=== PATIENT | female | born 1990 | race Caucasian/White ===

== ENCOUNTER → 2020-02-11 08:48 | Outpatient (CLI) | payer MEDICAID, SELFPAY ==
[2020-02-11 09:10] LABS: Absolute Lymphocyte Count 2.19 X10^3/uL (0.83-4.51); Absolute Neutrophil Count 4.7 X10^3/uL (2.0-7.7); Basophil# 0.05 X10^3/uL; Basophil% 0.6 % (0-1); Eosinophil# 0.33 X10^3/uL; Eosinophils% 4.2 % (0-5); Hemoglobin 13.9 g/dL (12.0-15.0); Lymphocyte # 2.19 X10^3/ul (4.0); Mean Corp Hgb Conc 33.1 g/dL (32-36); Mean Corpuscular Hgb 30.2 pg (27.0-32.0); Mean Corpuscular Volume 91.3 fL (81-99); Mean Platelet Vol. 9.2 fl (6.2-12.0); Monocyte# 0.55 X10^3/uL; NRBC Flagged by Analyzer 0 % (0-5); Neutrophil # 4.67 X10^3/uL (2.7-7.7); Neutrophil % 59.8 % (47-70); Platelet Count 294 K/mm3 (150-450); RBC Distribution Width CV 12.3 % (11.6-14.6); White Blood Count 7.8 K/mm3 (4.4-11.0)
[2020-02-11 09:45] LABS: ALB/GLOB Ratio 1.2 RATIO (0.9-2.4); AST(SGOT) 8 U/L (15-37); Alanine Aminotransfer ALT/SGPT 17 U/L (13-56); Albumin, Serum 3.8 g/dL (3.2-5.0); Alkaline Phosphatase 96 U/L (45-117); Anion Gap 2 (5-15); BUN 12 mg/dL (7-18); BUN/Creat Ratio 18.8 RATIO (10-20); Calcium,Total 8.8 mg/dL (8.5-10.1); Chloride 110 mmol/L (98-107); Cholesterol 202 mg/dL (200); Creatinine, Serum 0.64 mg/dL (0.55-1.02); EST Glomerular Filtration Rate 118 mL/min (>60); Est Glom Filt Rate - Afr Amer 143 mL/min (>60); Globulin 3.2 g/dL (2.2-4.2); Glucose 82 mg/dL (74-106); High Density Lipoprotein 27 mg/dL; Sodium Level 139 mmol/L (136-145); T4 Free Direct 0.94 ng/dL (0.76-1.46); Thyroid Stim Hormone (TSH) 0.89 uIU/mL (0.358-3.74); Triglycerides 154 mg/dL; Very Low Density Lipoprotein 31 mg/dL (5-40)
[2020-02-11 09:46] LABS: Hemoglobin A1c 4.8 % (3.8-5.6)
[2020-02-13 09:19] LABS: HIV - WCH Non-Reactive (Nonreactive); Hepatitis C Antibody Non-Reactive (Nonreactive); Vitamin D,25 Hydroxy 30.6 ng/mL
[2020-02-16 05:27] LABS: Rapid Plasmin Reagin (RPR) NONREACTIVE (NONREACTIVE)
== END ==
DX: R10.84 Generalized abdominal pain (principal); R35.8 Other polyuria; M54.5 Low back pain; Z20.9 Contact with and (suspected) exposure to unspecified communicable disease
CPT/HCPCS: 36415; 80053; 80061; 82306; 83036; 84439; 84443; 85025; 86592; 86703; 86803

== ENCOUNTER → 2020-02-28 08:18 | Outpatient (CLI) | payer MEDICAID, SELFPAY ==
[2016-03-12 01:23] VITALS: BMI 26.6
--- NOTE | 2020-02-28 08:23 | CT_ITS ---
STUDY: CT ABDOMEN AND PELVIS WITHOUT CONTRAST REASON FOR EXAM: Female, 29 years old. PT STATED PELVIC PRESSURE WITH URINATION, MICRO HEMATURIA, HX APPY AND CHRISTINE RADIATION DOSAGE (If Supplied By Facility): CTDIvol = ( 6.55 ) mGy, DLP = ( 340.28 ) mGycm TECHNIQUE: Transaxial images were obtained from the dome of the diaphragm to the symphysis pubis without oral contrast, and without intravenous contrast. Sagittal and coronal images were reconstructed. Individualized dose optimization techniques were used for this CT. COMPARISON: Comparison is made with prior examination dated 01/26/2012. FINDINGS: The visualized lung bases are unremarkable. The visualized portions of the heart are within normal limits. Normal liver. There are surgical clips in the gallbladder fossa consistent with a prior cholecystectomy. Normal spleen. Normal pancreas. Normal bilateral adrenal glands. Normal right kidney. Normal left kidney. Normal visualized stomach. Normal small intestine. Normal colon. There are surgical clips in the region of the appendix consistent with a prior appendectomy. Normal abdominal aorta. Normal inferior vena cava. Normal retroperitoneum. Normal urinary bladder. There is a 2.9 cm x 2.7 cm right ovarian cyst. Normal abdominal wall. Normal osseous structures. CT/Abdomen/Pelvis without Cont IMPRESSION: 2.9 cm x 2.7 cm right ovarian cyst. Electronically Signed: Simon Tavera, at 10:04 EDT , Service support ,
== END ==
PROVIDERS: Referring Provider Nurse Practitioner Family; Visit Provider Nurse Practitioner Family
DX: R10.84 Generalized abdominal pain (principal)
CPT/HCPCS: 74176

== ENCOUNTER 2020-03-09 17:11 | Emergency (ER) | payer MEDICAID, SELFPAY ==
[2020-03-09 17:12] VITALS: BP 114/74; PULSE 65; RESP 18; TEMP 36.3; O2SAT 99; BMI 26.5
--- NOTE | 2020-03-09 18:00 | US_ITS ---
STUDY: ULTRASOUND TRANSVAGINAL CLINICAL: Female, 29 years old. RLQ PAIN TECHNIQUE: Transvaginal COMPARISON: CT of the abdomen and pelvis 02/28/2020 FINDINGS: Normal uterine size measuring 7.9 x 3.7 x 3.1 cm in maximal craniocaudal dimension. There are no myometrial masses. Normal endometrial thickness measuring 1.5 mm. There are no endometrial masses, and there is no fluid in the endometrial cavity. Normal uterine cervix. Normal right ovary, measuring 3.3 x 3.6 x 3.2 cm. There is a 2.9 x 3.6 x 2 cm cyst. Normal left ovary, measuring 2.7 x 1.5 x 1.7 cm. There are multiple follicles without a dominant cyst. There is no free fluid in the pelvis. US/Transvaginal Non- IMPRESSION: Small right ovarian cyst measuring 2.9 x 3.6 x 2 cm likely physiologic in patient of this age. No significant abnormality Electronically Signed: Jose Coelho MD at 21:24 EDT , Service support ,
[2020-03-09 18:20] LABS: Bacteria 0 SEEN /hpf (None Seen); Mucous, Urine 0 SEEN /hpf (<or=2+)
[2020-03-09] MEDS: Morphine 4 MG/ML Syringe IM (18:22)
[2020-03-09] MEDS: Ibuprofen 600 MG Tablet PO (18:22)
[2020-03-09 18:25] LABS: Color, Urine Yellow (Yellow); Glucose, Dipstick Normal (Normal); Ketone-Dipstick Negative (Negative); Leukocyte Esterase-Dipstick 100 /ul (Negative); Nitrite-Dipstick Negative (Negative); Occult Blood-Urine 50 /ul (Negative); Protein-Dipstick Negative (Negative); Urine Bilirubin Dipstick Negative (Negative); Urine Clarity Clear (Clear); Urine Urobilinogen Normal (Normal)
[2020-03-09 18:28] LABS: Internal QC Validated? YES +Cl - CLEAR BKGD; Pregnancy, Urine Negative Negative
[2020-03-09 18:43] LABS: Red Blood Cells-Urine 0-5 SEEN /hpf (0-5); Squamous Epithelial Cells - UA 5-10 SEEN /hpf (5-10); White Blood Cells 0-5 SEEN /hpf (0-5)
[2020-03-09 21:58] VITALS: RESP 18
--- NOTE | 2020-03-09 22:27 | ED.VIS.GEN ---
History of Present Illness Chief Complaint: Abd Pain Informant: Patient Onset: Today Context: Gradual Onset Timing: Continuous Narrative: Patient is a 29-year-old female presenting from home with right pelvic pain. Patient states she was recently told she has a cyst on her right side is worried that it might be rupturing. She states she started having mild pain this morning that seem to be worse when she was straining to have a bowel movement. The pain is increase throughout the day. She is also notes today she has had bloody/more mucus-like discharge. Her last menstrual period was about a month ago but she is not concerned for as she has a Nexplanon. Patient has any associated dysuria, vomiting or diarrhea. She does have associated nausea and headache associate with her pain. The pain does not radiate. Patient states she is only had one partner and was just seen by her CARD SERVICES SPECIALIST and is not concerned for sexually transmitted factions. She states she just had a Pap smear last week. States he has not been sexually active for the past 2 to 3 weeks. She has no other complaints at this time. Past Medical History - Allergies and Home Meds Allergies/Adverse Reactions: Allergies TB SHOT Adverse Reaction (Uncoded 06/12/13 07:16) Swelling HAD A BABY; HAS SACR FROM SHOT; HAS NOT HAD SINCE Primary Care Physician: Carolann hCo DO [STAFF PHYSICIAN] - [facility],Erica Richardson [Primary Care Provider] - Past Medical History: None Surgical History: appendectomy, cholecystectomy Lives: With Family Smoking Status: Current every day smoker Review of Systems General: Denies: Chills, Fever, Sweats Eyes: Denies: Visual changes - bilaterally, Diplopia ENT: Denies: Rhinorrhea, Sore throat Cardiovascular: Denies: Chest pain, Palpitations Respiratory: Denies: Dyspnea, Cough, Dyspnea on exertion Gastrointestinal: Reports: Abdominal pain, Nausea. Denies: Vomiting, Diarrhea, Melena, Hematochezia Genitourinary: Reports: - - abnormal vaginal discharge . Denies: Dysuria, Hematuria, Frequency Musculoskeletal: Denies: Back pain, Extremity Pain Skin: Denies: Rash, Wounds Neurological: Denies: Headache, Weakness, Numbness Physical Exam Vital Signs/Narrative: Vital Signs Resp 03/09/20 21:58 18 Inital Vital Signs reviewed: Yes General: Well nourished, Well developed, No Acute Distress Head: Normocephalic, Atraumatic Eyes: Perrl, EOMI ENT: Moist mucous membranes, No rhinorrhea Neck: Supple, Nontender Cardiovascular: Regular rate, Regular rhythm, No murmurs Respiratory: No distress, CTA bilaterally, Chest nontender Abdomen: Soft, Nontender, Nondistended, Normal bowel sounds. Negative for: Guarding, Rebound tenderness : - - No external discharge. Slightly mucoid vaginal discharge present. No cervical motion tenderness. Mild right adnexal tenderness. Normal left adnexa. Back: Nontender, Normal Inspection. Negative for: CVA tenderness Extremities: Nontender, No edema Skin: Normal color, No rash Neurological: Alert, Oriented x3, Cranial nerves II-XII grossly intact, Normal Strength, Normal Sensation Psychological: Normal affect, Normal Mood Diagnostic/Tx/Re-eval Clinical Impression(s) from Imaging Studies Transvaginal US 03/09/20 18:00 IMPRESSION: Small right ovarian cyst measuring 2.9 x 3.6 x 2 cm likely physiologic in patient of this age. No significant abnormality Electronically Signed: Jose Coelho MD at 21:24 EDT , Service support , Laboratory Data 03/09/20 03/09/20 03/09/20 18:10 18:10 18:10 Urine Color Yellow Urine Clarity Clear Urine pH 7.0 Ur Specific [place] 1.010 Urine Protein Negative Urine Glucose (UA) Normal Urine Ketones Negative Urine Occult Blood 50 H Urine Nitrite Negative Urine Bilirubin Negative Urine Urobilinogen Normal Ur Leukocyte Esterase 100 H Urine RBC 0-5 SEEN Urine WBC 0-5 SEEN Ur Squamous Epith Cells 5-10 SEEN Urine Bacteria 0 SEEN Urine Mucus 0 SEEN Urine Test Negative Chlam trachomat DNA PCR Negative N.gonorrhoeae DNA (PCR) Negative - Medical Decision Making Patient is evaluated for worsening pain in her right pelvic region. She is concerned she has a ruptured ovarian cyst. She is well-appearing but is given a dose of IM morphine for pain control. She is also given Motrin and Tylenol. Patient appears nontoxic and in no acute distress however she is mildly uncomfortable. Pelvic exam is not consistent with pelvic inflammatory disease or other acute infectious process. Denies any CVA tenderness. Patient does have some leukocytes in her urine. The pain is low in her abdomen I do not suspect GI source. In addition patient status post appendectomy so do not think she will be appendicitis. Transvaginal ultrasound obtained to rule out ruptured ovarian cyst versus ovarian torsion. No acute process is seen. Patient does have a physiologic cyst there however think is more incidental. Patient be discharged home with antibiotics she does have a questionable UTI. Gonorrhea and Chlamydia are negative. She is instructed to follow-up with CARD SERVICES SPECIALIST and is referred to Dr. Cho. She is given return precautions. Patient verbalizes agreement understand this plan. She discharged home in stable condition. ED Disposition - Plan for ED Patient: Disposition: Home or Assisted Living Diagnosis: Pelvic pain, Right ovarian cyst Instructions: ED Cyst Ovarian, ED Pelvic Pain [facility] Prescriptions: Cephalexin [Keflex] 500 mg PO BID #10 cap Prescription Printed Ibuprofen [Motrin] 600 mg PO Q6H PRN PRN #20 tab PRN Reason: Pain Score 1-10/10 Prescription Printed Ondansetron [Zofran Odt] 4 mg PO Q8H PRN PRN #10 tab PRN Reason: Nausea Prescription Printed [facility] - Carolann Cho DO [STAFF PHYSICIAN] - Additional Instructions: Your pain might be from an ovarian cyst. I will treat you for urinary tract infection as well as she did have some signs of inflammation in your bladder. Take Motrin as needed for pain. Return the emergency room with any worsening symptoms. You have Been referred to an CARD SERVICES SPECIALIST, Dr. Cho to follow-up if your pain persist or does not improve.
[2020-03-09] MEDS: Acetaminophen 500 MG Tablet 1000 MG PO (22:54)
[2020-03-09 22:55] VITALS: BP 127/69; PULSE 75; RESP 16; O2SAT 99
[2020-03-10 00:41] LABS: Chlamydia Trachomatis by PCR Negative (Negative); Neisserai gonorrhoeae by PCR Negative (Negative)
[2020-03-10 00:42] LABS: Probe Check PASS; Sample Adequacy Control PASS; Specimen Processing Control PASS
== END 2020-03-09 22:56 | disposition home or self-care (01) ==
PROVIDERS: Emergency Provider Emergency Medicine
DX: R10.2 Pelvic and perineal pain (principal); N83.201 Unspecified ovarian cyst, right side; N30.90 Cystitis, unspecified without hematuria; F17.200 Nicotine dependence, unspecified, uncomplicated; Z90.49 Acquired absence of other specified parts of digestive tract
CPT/HCPCS: 76830; 81001; 81025; 87210; 87491; 87591; 96372; 99283

== ENCOUNTER 2022-03-22 20:54 | Emergency (ER) | payer MEDICAID, SELFPAY ==
[2022-03-22 20:56] VITALS: BP 135/74; PULSE 70; RESP 18; TEMP 36.3; O2SAT 99; BMI 26.4
[2022-03-22 21:58] VITALS: BP 109/59; PULSE 85; RESP 16; TEMP 37.2; O2SAT 100
--- NOTE | 2022-03-22 22:08 | RAD_ITS ---
STUDY: X-RAY CHEST REASON FOR EXAM: Female, 31 years old. Cough TECHNIQUE: Portable, upright, AP chest radiograph COMPARISON: None. FINDINGS: The lungs are clear and expanded. There is no demonstrated pleural abnormality. Normal size heart. Normal mediastinum and elvira. Normal visualized pulmonary arteries. Normal visualized aortic arch and descending thoracic aorta. Cholecystectomy clips noted. RAD/Chest 1 View (Portable) IMPRESSION: No acute abnormal cardiopulmonary finding. Electronically Signed: Tyler Benoit MD at 22:33 EDT ,
--- NOTE | 2022-03-22 22:10 | EX.ED.DYSGE1 ---
HPI History of Present Illness Chief Complaint: General Illness Informant: patient Onset/Context/Timing Onset: Today Narrative Narrative: Patient presents secondary to body aches and headache. She states she woke this morning with symptoms. She reports a fever of 99.8. She took ibuprofen 11 hours ago. She denies nausea, vomiting, diarrhea. No urinary symptoms. She does report a mild cough. She did not get vaccinated for COVID. [facility] Medical History PTSD (post-traumatic stress disorder) Allergy/AdvReac Type Severity Reaction Status Date / Time TB SHOT AdvReac Swelling Uncoded 03/22/22 20:55 Surgical History History of appendectomy History of cholecystectomy Social History Smoking Status: Current every day smoker tobacco type: cigarettes Tobacco: How many years used: 8 ROS ROS ED Constitutional Constitutional ED: Reports chills and fever(s) Eyes Eyes: Denies change in vision or discharge from eye(s) ENT ENT ED: Reports other Details: Congestion ; Denies discharge from eye(s), rhinorrhea or sore throat Cardiovascular Cardiovascular: Denies chest pain or palpitations Respiratory/Chest Respiratory/Chest: Reports cough; Denies dyspnea Gastrointestinal Gastrointestinal: Denies abdominal pain, diarrhea, nausea or vomiting Genitourinary Genitourinary ED: Denies difficulty urinating or dysuria Musculoskeletal Musculoskeletal: Reports back pain, extremity pain and myalgias Integumentary Denies Abrasions or rash Neurologic Neurologic: Reports headache(s); Denies weakness Psychiatric Psychiatric: Denies anxiety or depression Allergic/Immunologic Allergic/Immunologic ED: Denies lip swelling or urticaria EXAM Physical Exam Const Vital Signs: 03/22/22 20:56 03/22/22 21:03 03/22/22 21:58 Temperature 97.4 F L 99 F Temperature Source Temporal Oral Pulse Rate 70 85 Respiratory Rate 18 16 Respiratory Effort Normal Non-Labored Respiratory Pattern Normal Blood Pressure 135/74 H 109/59 L Blood Pressure Mean 94 75 Pulse Ox 99 100 Oxygen Delivery Method Room Air Room Air 03/22/22 22:52 Temperature Temperature Source Pulse Rate 53 L Respiratory Rate 16 Respiratory Effort Respiratory Pattern Blood Pressure 116/70 Blood Pressure Mean 85 Pulse Ox 98 Oxygen Delivery Method Room Air Positive well nourished and well developed General Appearance ED: well developed HEENT Reports normocephalic and head/scalp atraumatic Eyes PERRL and EOMs intact bilaterally Neck supple Chest Wall inspection of chest normal and palpation of chest normal Resp normal respiratory effort and clear to auscultation bilaterally Cardio regular rate and regular rhythm GI normal to inspection, nondistended, normoactive bowel sounds Palpation: soft Extremity normal to inspection Neuro oriented x3 and no sensory deficits noted Sensorium / Orientation: alert Motor Exam: strength 5/5 throughout Psych mental status grossly normal Skin no rashes or lesions noted MDM MDM MDM Narrative Medical decision making narrative: Chest x-ray ordered along with lab work. COVID and influenza swab obtained. Patient given IV fluids along with Toradol and Zofran. Lab Data Attestation: I reviewed the patient's lab results. Labs: Laboratory Results - last 24 hr 03/22/22 03/22/22 03/22/22 22:29 22:29 22:29 WBC 5.7 RBC 3.93 L Hgb 11.7 L Hct 35.5 L MCV 90.3 MCH 29.8 MCHC 33.0 RDW Std Deviation 40.8 RDW Coeff of Fox 12.2 Plt Count 240 MPV 9.8 Immature Gran % (Auto) 0.300 Neut % (Auto) 77.2 H Lymph % (Auto) 8.9 L [place] % (Auto) 10.5 H Eos % (Auto) 2.8 Baso % (Auto) 0.3 Absolute Neuts (auto) 4.4 Absolute Lymphs (auto) 0.51 L Nucleated RBC % 0 Differential Comment SEE COMMENT Platelet Estimate ADEQUATE RBC Morphology N CHROM Anisocytosis RARE Macrocytosis RARE Sodium 140 Potassium 3.8 Chloride 109 H Carbon Dioxide 23.0 Anion Gap 8 BUN 12 Creatinine 0.64 Estim Creat Clear Calc 97.87 Est GFR (MDRD) Af Amer 141 Est GFR (MDRD) Non-Af 116 BUN/Creatinine Ratio 18.8 Glucose 97 Calcium 9.3 Serum , Qual NEGATIVE Radiography Chest X-Ray - ED: 1 View, Read by ED Physician, Normal, Heart, Lungs, Mediastinum and No Infiltrates Diagnostic Testing: Clinical Impression(s) from Imaging Studies Chest X-Ray 03/22/22 22:08 IMPRESSION: No acute abnormal cardiopulmonary finding. Electronically Signed: Tyler Benoit MD at 22:33 EDT , Treatment and Re-Evaluation Narrative: Chest x-ray per my interpretation reveals no focal infiltrate. Radiology interpretation is reviewed. CBC reveals normal white count. Chemistry studies largely unremarkable. test negative. Influenza test is negative but COVID test does return positive. Test results discussed with patient and at bedside. Supportive care is discussed. Return instructions provided. Discharge Plan Triage Chief Complaint: General Illness ED Provider: Michelle Nava Dx/Rx/DC Orders Clinical Impression: COVID-19 Instructions: Coronavirus Disease 2019 (COVID-19): Overview, Coronavirus Disease 2019 (COVID-19): Caring for Yourself or Others Stand Alone Forms: ED Work / School Excuse Primary Care Provider: Erica Peña Referrals: Erica Peña [Primary Care Provider] - 1-2 Weeks Disposition Disposition: Home, Self Care
[2022-03-22 22:37] LABS: Absolute Lymphocyte Count 0.51 X10^3/uL (0.83-4.51); Absolute Neutrophil Count 4.4 X10^3/uL (2.0-7.7); Basophil# 0.02 X10^3/uL; Basophil% 0.3 % (0-1); Eosinophil# 0.16 X10^3/uL; Eosinophils% 2.8 % (0-5); Hematocrit 35.5 % (37-47); Hemoglobin 11.7 g/dL (12.0-15.0); Lymphocyte # 0.51 X10^3/ul (0.83-4.51); Lymphocyte % 8.9 % (19-41); Mean Corpuscular Hgb 29.8 pg (27.0-32.0); Mean Corpuscular Volume 90.3 fL (81-99); Mean Platelet Vol. 9.8 fl (6.2-12.0); Monocyte% 10.5 % (0-10); NRBC Flagged by Analyzer 0 % (0-5); Neutrophil # 4.42 X10^3/uL (2.7-7.7); Neutrophil % 77.2 % (47-70); POSITIVE DIFFERENTIAL YES; Platelet Count 240 K/mm3 (150-450); RBC Distribution Width CV 12.2 % (11.6-14.6); RBC Distribution Width SD 40.8 fl (35.1-43.9); Red Blood Count 3.93 M/mm3 (4.2-5.4); White Blood Count 5.7 K/mm3 (4.4-11.0)
[2022-03-22 22:39] LABS: Differential Indicated SCAN CRITERIA MET
[2022-03-22] MEDS: 0.9% Normal Saline 1,000 ML 1000 ML IV (22:39)
[2022-03-22] MEDS: Ondansetron 4 MG/2 ML Vial IV (22:39)
[2022-03-22] MEDS: Ketorolac 30 MG/ML Syringe IV (22:43)
[2022-03-22 22:49] LABS: Internal QC Validated? YES +Cl - CLEAR BKGD; Pregnancy, Serum, hCG Quali. NEGATIVE Negative
[2022-03-22 22:51] LABS: Anion Gap 8 (5-15); BUN 12 mg/dL (7-18); BUN/Creat Ratio 18.8 RATIO (10-20); Calcium,Total 9.3 mg/dL (8.5-10.1); Chloride 109 mmol/L (98-107); Creatinine, Serum 0.64 mg/dL (0.55-1.02); EST Glomerular Filtration Rate 116 mL/min (>60); Est Glom Filt Rate - Afr Amer 141 mL/min (>60); Estimated Creatinine Clearance 97.87 ml/min; Glucose 97 mg/dL (74-106); Potassium 3.8 mmol/L (3.5-5.1); Sodium Level 140 mmol/L (136-145)
[2022-03-22 22:52] VITALS: BP 116/70; PULSE 53; RESP 16; O2SAT 98
[2022-03-22 23:21] LABS: Anisocytosis RARE; Platelet Estimate ADEQUATE (ADEQ); Red Cell Morphology N CHROM NORMAL (NORM C&C)
[2022-03-22 23:22] LABS: Macrocytosis RARE
[2022-03-22 23:58] VITALS: BP 101/47; PULSE 61; RESP 16; O2SAT 97
== END 2022-03-23 00:06 | disposition home or self-care (01) ==
PROVIDERS: Emergency Provider Emergency Medicine; Visit Provider Emergency Medicine
DX: U07.1 COVID-19 (principal); F17.210 Nicotine dependence, cigarettes, uncomplicated; Z28.310 Unvaccinated for COVID-19; Z28.9 Immunization not carried out for unspecified reason
CPT/HCPCS: 71045; 80048; 84703; 85025; 87428; 96361; 96374; 96375; 99283; J7030; A4216; J2405

== ENCOUNTER → 2023-02-18 | Outpatient (CLI) | payer MEDICAID, SELFPAY ==
--- NOTE | 2023-02-18 11:40 | RAD_ITS ---
INDICATION: ACUTE UPPER RESP INFECTION EXAMINATION/TECHNIQUE: X-RAY - XR Chest 2 Views COMPARISON: 03/22/2022. FINDINGS: LINES/DEVICES: None. LUNGS: No consolidation, edema or effusion. No pneumothorax. MEDIASTINUM AND CARDIOVASCULAR STRUCTURES: Cardiac silhouette not enlarged. Central airways and mediastinal contour are unremarkable. BONES AND SOFT TISSUES: Unremarkable. RAD/Chest PA and Lateral IMPRESSION: No acute cardiopulmonary disease. Electronically Signed: Tatum Hollingsworth MD at 16:46 EDT ,
== END | disposition home or self-care (01) ==
LOC: RAD 11:26
PROVIDERS: Referring Provider Nurse Practitioner Family; Visit Provider Nurse Practitioner Family
DX: J06.9 Acute upper respiratory infection, unspecified (principal)
CPT/HCPCS: 71046

== ENCOUNTER 2023-03-26 11:49 | Emergency (ER) | payer MEDICAID, SELFPAY ==
[2023-03-26 11:50] VITALS: BP 102/77; PULSE 56; RESP 16; TEMP 36.5; O2SAT 98; BMI 22.6
--- NOTE | 2023-03-26 12:16 | EKG12_ITS ---
Test Reason : SYNCOPE Blood Pressure : / mmHG Vent. Rate : 057 BPM Atrial Rate : 057 BPM P-R Int : 152 ms QRS Dur : 080 ms QT Int : 402 ms P-R-T Axes : 050 027 041 degrees QTc Int : 391 ms Sinus bradycardia with sinus arrhythmia Otherwise normal ECG Confirmed by AUDIE COSBY, TOBI ([id number]), photograph editor CRYSTAL BARNEY ([id number]) on 03/31/2023 12:30:30 PM Referred By: Confirmed By:TOBI BRONSON MD
--- NOTE | 2023-03-26 12:53 | EX.ED.DYSGE1 ---
HPI History of Present Illness Chief Complaint: Syncope [facility] Medical History PTSD (post-traumatic stress disorder) Allergy/AdvReac Type Severity Reaction Status Date / Time BCG (Bacillus Allergy Severe Swelling Verified 03/26/23 11:53 [place]) vacc Surgical History History of appendectomy History of cholecystectomy Social History Smoking Status: Current every day smoker tobacco type: cigarettes Tobacco: How many years used: 8 EXAM Physical Exam Const Vital Signs: 03/26/23 11:50 03/26/23 11:54 03/26/23 13:20 Temperature 97.7 F L Temperature Source Oral Pulse Rate 56 L 60 Respiratory Rate 16 23 H Respiratory Pattern Normal Blood Pressure 102/77 102/68 Blood Pressure Mean 85 79 Pulse Ox 98 97 Oxygen Delivery Method Room Air Room Air Fraction of Inspired Oxygen (FIO2) 03/26/23 13:30 03/26/23 14:37 Temperature Temperature Source Pulse Rate 50 L Respiratory Rate 18 Respiratory Pattern Blood Pressure 102/64 Blood Pressure Mean 76 Pulse Ox 98 Oxygen Delivery Method Room Air Room Air Fraction of Inspired Oxygen (FIO2) 97 MDM MDM MDM Narrative Medical decision making narrative: HISTORY OF PRESENT ILLNESS: 32 female here with concern for syncope. States she had a edible this morning. States he has a medical marijuana card. States he felt weak and dizzy prior to this episode of losing consciousness. She further states she had a grocery store felt lightheaded dizzy warm and nauseous felt sweaty and lost consciousness. No head trauma noted. Patient states her significant other was able to catch her. There is no significant shaking or prolonged postictal state noted. No tongue biting or bowel or bladder incontinence. No focal weakness. No headache prior to passing out. No chest pain or shortness of breath. No family history of syncope or early cardiac . The patient denies recent surgery in the last 4 weeks or immobilization in the last 3 days, denies previous diagnosis of DVT or PE, hemoptysis, unilateral leg swelling or malignancy with treatment the last 6 months or palliative. No estrogen use noted. Patient denies sudden onset of pain, no tearing sensation, no migratory symptoms, no new numbness, weakness or loss of sensation. Patient denies family history or personal history of Connective tissue disorders (Marfan's Syndrome, Griffin Danlos etc) REVIEW OF SYSTEMS: Pertinent positives: Syncope Pertinent negatives: Headache, abdominal pain, chest pain, palpitations PHYSICAL EXAM: Nursing triage notes reviewed, Vital signs reviewed Constitutional: please see mdm HENT: MMM Eyes: Pupils equal round and reactive to light, Extraocular muscles intact Neck: No stridor, no JVD, full neck ROM Lungs: Clear to auscultation, No wheezing or rales. No increased work of breathing, no conversational dyspnea, no accessory muscle use, no nasal flaring. No respiratory distress noted Heart: Regular rate and rhythm, No murmurs, No rubs and No gallops, 2+ distal pulses (radial, femoral, posterior tibial) in all extremities Abdomen: Soft, there is no tenderness, rigidity, rebound or guarding, no obvious peritoneal signs, no palpable pulsatile abdominal masses, no auscultated abdominal bruit : No CVAT Extremities: No edema Neuro: No focal neurological deficits, cranial nerves II through XII intact, 5/5 strength in all extremities. Intact sensation to light touch in all extremities, 2+ reflexes bilateral patella tendons. Normal gait. No ataxia. Skin: No rash or lesions noted MEDICAL DECISION MAKING: Chief Complaint: Syncope External records reviewed: No recent echocardiograms noted in the chart Factors affecting care: none Social determinants of health: Marijuana use History obtained from others: EMS Consults: none [facility] Narrative: Patient was initially hemodynamically stable, afebrile, nontoxic-appearing. Slightly bradycardic. I considered the following differential diagnosis: Arrhythmia, anemia, s subarachnoid hemorrhage, ectopic , PE, dissection. There is no headache to suggest subarachnoid hemorrhage. There is no chest pain or shortness of breath to suggest dissection or PE. There is no abdominal pain to suggest ectopic . I was concerned about abnormal heart rhythms, anemia, dehydration, electrolyte disturbances so I obtained a broad lab and imaging work-up to further elucidate the etiology of the patient's complaints. ALL IMAGES (IF OBTAINED) HAVE BEEN PERSONALLY REVIEWED AND INTERPRETED BY MYSELF. EKG with sinus bradycardia, normal axis, normal intervals, no STEMI, no WPW, no ARVD, no Brugada syndrome noted CBC with leukocytosis suggestive of systemic inflammation may be reactive, no anemia or thrombocytopenia BMP without evidence of significant electrolyte abnormalities, no anion gap, no acute kidney injury. Troponin is negative, no evidence of myocardial ischemia, awaiting delta troponin I have personally reviewed the patient's chest x-ray. Chest x-ray is unremarkable for pulmonary edema, pneumothorax, pneumonia or focal cardiopulmonary abnormality. BNP pending The amalgamation of the patient's labs images were not suggestive of anemia, electrolyte disturbances, heart failure, pneumonia, pneumothorax. Etiology likely benign possibly vasovagal may be associated with THC ingestion. Delta troponin is pending. Patient was reevaluated. Updated on labs and images. This time patient who is alert and oriented x3 and had capacity to make her own medical decisions just be discharged home. Risk of missed diagnosis, delayed diagnosis, , disability or inability in, discussed the patient is able to endorse her risk verbally. She was discharged in stable condition. Instructed patient follow-up with primary care physician for Holter monitor and possibly echocardiogram on an outpatient basis. The patient and/or family, caregivers express understanding. The patient and/or family, caregivers agrees with the plan. Shared decision making: I will have a discussion with the patient and or visitors regarding risk/benefits of further testing or admission. They will be made aware of of the risk/benefits inherent in this decision they will be given the opportunity to voice understanding. Total critical care time today provided was at least 0 minutes. This excludes separately billable procedures. Critical care time (if documented) is secondary to the patient having high probability of clinically significant/life threatening deterioration in the patient's condition which required my urgent intervention. Impression: 1. Syncope 2. Leukocytosis 3. THC ingestion Dispo: Patient was discharged in stable condition. Lab Data Labs: Laboratory Results - last 24 hr 03/26/23 13:30 WBC 13.7 H RBC 4.81 Hgb 14.8 Hct 44.0 MCV 91.5 MCH 30.8 MCHC 33.6 RDW Std Deviation 40.5 RDW Coeff of Fox 12.0 Plt Count 278 MPV 9.3 Immature Gran % (Auto) 0.200 Neut % (Auto) 82.9 H Lymph % (Auto) 11.4 L [place] % (Auto) 4.0 Eos % (Auto) 1.0 Baso % (Auto) 0.5 Absolute Neuts (auto) 11.3 H Absolute Lymphs (auto) 1.56 Nucleated RBC % 0 Sodium 137 Potassium 3.8 Chloride 107 Carbon Dioxide 27.0 Anion Gap 3 L BUN 15 Creatinine 0.57 Estim Creat Clear Calc 108.90 Est GFR (MDRD) Af Amer 160 Est GFR (MDRD) Non-Af 132 BUN/Creatinine Ratio 26.4 H Glucose 85 Calcium 9.2 Troponin I High Sens 15 B-Natriuretic Peptide < 2.0 Radiography Diagnostic Testing: Clinical Impression(s) from Imaging Studies Chest X-Ray 03/26/23 13:30 IMPRESSION: Normal x-ray examination of the chest. Electronically Signed: Simon Tavera MD at 13:47 EDT , Discharge Plan Triage Chief Complaint: Syncope ED Provider: Aydin Funk Dx/Rx/DC Orders Instructions: ED Fainting, Uncertain Cause Stand Alone Forms: ED Work / School Excuse Primary Care Provider: [facility] Erica Dunbar Referrals: [facility] Erica Dunbar [Primary Care Provider] - Activity Restrictions/Additional Instructions: Thank you for trusting us with your care today! Please take Tylenol (2 pills, 650 mg), ibuprofen (2 pills, 400 mg) every 6 hours as needed for pain and fever control. Please return to the emergency department if your symptoms change or worsen. Specifically if you lose consciousness, if you develop chest pain, shortness of breath, develop severe headache, abdominal pain if you develop focal numbness or weakness. Please follow with your primary care physician for further outpatient evaluation and management. Specifically to obtain a Holter monitor and/or outpatient echocardiogram Disposition Disposition: Home, Self Care
[2023-03-26 13:20] VITALS: BP 102/68; PULSE 60; RESP 23; O2SAT 97
--- NOTE | 2023-03-26 13:30 | RAD_ITS ---
STUDY: X-RAY CHEST REASON FOR EXAM: Female, 32 years old. Chest pain. TECHNIQUE: Single AP portable view of the chest. COMPARISON: Comparison is made with prior study dated February 18, 2023. FINDINGS: EKG electrodes are seen. The lungs are clear. There is no demonstrated pleural abnormality. Normal size heart. Normal mediastinum and elvira. Normal visualized pulmonary arteries. Normal visualized aortic arch and descending thoracic aorta. Normal visualized thoracic spine. Normal visualized ribs, clavicles, and shoulders. There is no demonstrated abnormality of the visualized soft tissue structures of the upper abdomen. RAD/Chest 1 View (Portable) IMPRESSION: Normal x-ray examination of the chest. Electronically Signed: Simon Tavera MD at 13:47 EDT ,
[2023-03-26] MEDS: 0.9% Normal Saline (1000mL) 1,000 ML 1000 ML IV (13:42)
[2023-03-26 13:49] LABS: Absolute Lymphocyte Count 1.56 X10^3/uL (0.83-4.51); Absolute Neutrophil Count 11.3 X10^3/uL (2.0-7.7); Basophil# 0.07 X10^3/uL; Basophil% 0.5 % (0-1); Eosinophil# 0.14 X10^3/uL; Hemoglobin 14.8 g/dL (12.0-15.0); Lymphocyte # 1.56 X10^3/ul (0.83-4.51); Lymphocyte % 11.4 % (19-41); Mean Corp Hgb Conc 33.6 g/dL (32-36); Mean Corpuscular Hgb 30.8 pg (27.0-32.0); Mean Corpuscular Volume 91.5 fL (81-99); Mean Platelet Vol. 9.3 fl (6.2-12.0); Monocyte# 0.54 X10^3/uL; NRBC Flagged by Analyzer 0 % (0-5); Neutrophil # 11.33 X10^3/uL (2.7-7.7); Neutrophil % 82.9 % (47-70); Platelet Count 278 K/mm3 (150-450); RBC Distribution Width SD 40.5 fl (35.1-43.9); Red Blood Count 4.81 M/mm3 (4.2-5.4); White Blood Count 13.7 K/mm3 (4.4-11.0)
[2023-03-26 14:07] LABS: Anion Gap 3 (5-15); BUN 15 mg/dL (7-18); BUN/Creat Ratio 26.4 RATIO (10-20); Calcium,Total 9.2 mg/dL (8.5-10.1); Chloride 107 mmol/L (98-107); Creatinine, Serum 0.57 mg/dL (0.55-1.02); EST Glomerular Filtration Rate 132 mL/min (>60); Est Glom Filt Rate - Afr Amer 160 mL/min (>60); Glucose 85 mg/dL (74-106); Potassium 3.8 mmol/L (3.5-5.1); Sodium Level 137 mmol/L (136-145); Troponin-I HS (w/2H Reflex) 15 pg/mL (3.0-54.0)
[2023-03-26 14:37] VITALS: BP 102/64; PULSE 50; RESP 18; O2SAT 98
[2023-03-26 15:11] LABS: BNP,B-Type NATRIURETIC PEPTIDE < 2.0 pg/mL (0-100)
[2023-03-26 15:44] LABS: Reflex Troponin-HS? (from REC) Y
== END 2023-03-26 15:22 | disposition home or self-care (01) ==
PROVIDERS: Emergency Provider Emergency Medicine; Visit Provider Emergency Medicine
DX: R55 Syncope and collapse (principal); D72.829 Elevated white blood cell count, unspecified; F12.90 Cannabis use, unspecified, uncomplicated; F17.210 Nicotine dependence, cigarettes, uncomplicated
CPT/HCPCS: 71045; 80048; 83880; 84484; 85025; 93005; 99285; A4216

== ENCOUNTER 2023-06-13 13:15 | Emergency (ER) | payer MEDICAID, SELFPAY ==
[2023-06-13 13:15] VITALS: BP 115/67; PULSE 68; RESP 16; TEMP 36.4; O2SAT 100; BMI 24.8
--- NOTE | 2023-06-13 13:38 | US_ITS ---
STUDY: ULTRASOUND TRANSVAGINAL CLINICAL: Female, 32 years old. rlq pain TECHNIQUE: Transvaginal COMPARISON: 03/09/2020 FINDINGS: Normal uterine size measuring 8.3 x 4.4 x 2.7 cm in maximal craniocaudal dimension. There are no myometrial masses. Normal endometrial thickness measuring 3 mm. There are no endometrial masses, and there is no fluid in the endometrial cavity. Normal uterine cervix. Normal right ovary, measuring 3.0 x 1.8 x 1.8 cm. There are multiple follicles without a dominant cyst. 2.3 cm exophytic isoechoic mass of the right ovary worrisome for solid mass. Normal left ovary, measuring 3.1 x 2.1 x 2.2 cm. 2.2 cm dominant follicle the left ovary.. There is no free fluid in the pelvis. Polycystic ovary disease: No. US/Transvaginal Non- IMPRESSION: Suspect 2.3 cm exophytic solid mass of the right ovary. CT or MRI may be useful. No ovarian torsion. Electronically Signed: Kyle Park MD at 14:48 EST ,
[2023-06-13 13:39] LABS: Mucous, Urine 0 SEEN /hpf (<or=2+); White Blood Cells 0 SEEN /hpf (0-5)
--- NOTE | 2023-06-13 13:44 | EDS_ITS ---
HPI <MARTITA Cano - Last Filed: 06/13/23 15:08> History of Present Illness Chief Complaint: Abd Pain Narrative Narrative: 32-year-old female has had 2 days of right-sided pelvic pain that waxes and wanes with no pattern. She has a history of ovarian cyst. She has had a cholecystectomy and appendectomy. She denies fever chills or nausea or vomiting. She has increased urination but no dysuria or hematuria. No vaginal discharge. She is having normal bowel movements. PFSH <MARTITA Cano - Last Filed: 06/13/23 15:08> PFSH Medical History PTSD (post-traumatic stress disorder) Home Medications naproxen 500 mg tablet (Naprosyn) 500 mg PO BID PRN pain #20 tabs 06/13/23 [Rx Last Taken Unknown] Allergy/AdvReac Type Severity Reaction Status Date / Time BCG (Bacillus Allergy Severe Swelling Verified 03/26/23 11:53 [place]-Yue) vacc Surgical History History of appendectomy History of cholecystectomy Social History Smoking Status: Current every day smoker tobacco type: cigarettes Tobacco: How many years used: 8 ROS <MARTITA Cano - Last Filed: 06/13/23 15:08> ROS ED ROS Narrative Constitutional: Negative for fever, chills, malaise. CVS: Negative for chest pain, syncope. Respiratory: Negative for shortness of breath, cough. GI: Positive for abdominal pain. Negative for nausea, vomiting, diarrhea, constipation, melena, hematochezia. : Negative for dysuria, hematuria. EXAM <MARTITA Cano Last Filed: 06/13/23 15:08> Physical Exam Narrative Exam Narrative: CONST: Patient sitting in no acute distress. EYES: Normal inspection. NECK: Normal inspection. RESP: No respiratory distress, CTAB. CVS: Regular rate and rhythm, no murmur, no gallop. ABD: Soft with right lower pelvic tenderness, no guarding or rebound, nondistended, no hepatosplenomegaly. Back: Normal inspection, no CVA tenderness. SKIN: Color normal, no rash, warm, dry, intact. EXTREMITIES: Normal appearance, no pedal edema. NEURO: Oriented x4. PSYCH: Normal affect. Const Vital Signs: 06/13/23 13:15 Temperature 97.5 F L Temperature Source Temporal Pulse Rate 68 Respiratory Rate 16 Blood Pressure 115/67 Blood Pressure Mean 83 Pulse Ox 100 Oxygen Delivery Method Room Air <Dr. Rasheed Blanchard MD - Last Filed: 06/13/23 14:17> Physical Exam Const Vital Signs: 06/13/23 13:15 Temperature 97.5 F L Temperature Source Temporal Pulse Rate 68 Respiratory Rate 16 Blood Pressure 115/67 Blood Pressure Mean 83 Pulse Ox 100 Oxygen Delivery Method Room Air MDM <MARTITA Cano - Last Filed: 06/13/23 15:08> [facility] MDM Narrative Medical decision making narrative: Patient has right-sided pelvic pain x 2 days. She appears well and nontoxic and is afebrile with normal vital signs. She has right pelvic tenderness on exam. Abdomen soft and nondistended. She has no Linda's point tenderness and is already had an appendectomy. UA is negative for infection. test negative. Transvaginal ultrasound shows a 2.3 cm solid mass on the right ovary. There is no torsion. Pain is controlled after Toradol and I prescribed naproxen for home. I provided [employer] referral and discussed that differential includes cyst versus mass and she needs to follow-up to rule out neoplasm. Patient expressed understanding and was discharged in stable condition. I have personally performed a face to face assessment of the patient and have reviewed the JOSR Note. I performed a substantive portion of the visit including all aspects of the following. My rosales findings include: History is-year-old female right lower quadrant abdominal pain. Prior appendectomy and cholecystectomy. No fever or chills. No nausea, vomiting, diarrhea or constipation. No dysuria. No vaginal bleeding or discharge. Family history of ovarian cyst. Exam is [well-appearing 32-year-old. Vital signs stable afebrile. HEENT exam normal. Lungs clear. Heart regular rhythm. Abdomen soft nondistended normal bowel sounds no peritoneal signs. Mild very medial right lower quadrant pelvic tenderness. Left side unremarkable. No McBurney's point tenderness. No distention. No hernia no mass. Moving all 4 extremities.] Medical Decision Making [32-year-old right-sided pelvic pain possibly ovarian cyst. Urinalysis negative no signs of infection. 1+ bacteria and some blood. No white or red cells. Urine test negative. Ultrasound pending. Treated with Toradol for pain.] Other additions or changes: [None] Lab Data Attestation: I reviewed the patient's lab results. Labs: Laboratory Results - last 24 hr 06/13/23 13:34 Urine Color Yellow Urine Clarity Clear Urine pH 6.0 Ur Specific [place] 1.020 Urine Protein 15 H Urine Glucose (UA) Normal Urine Ketones Negative Urine Occult Blood 150 H Urine Nitrite Negative Urine Bilirubin Negative Urine Urobilinogen Normal Ur Leukocyte Esterase Negative Urine RBC 0-5 SEEN Urine WBC 0 SEEN Ur Squamous Epith Cells 0-5 SEEN Urine Bacteria 1+ Urine Mucus 0 SEEN Urine Test Negative Radiography Diagnostic Testing: Clinical Impression(s) from Imaging Studies Transvaginal US 06/13/23 13:38 IMPRESSION: Suspect 2.3 cm exophytic solid mass of the right ovary. CT or MRI may be useful. No ovarian torsion. Electronically Signed: Kyle Park MD at 14:48 EST , <Dr. Rasheed Blanchard MD - Last Filed: 06/13/23 14:17> [facility] Narrative Medical decision making narrative: I have personally performed a face to face assessment of the patient and have reviewed the JOSR Note. I performed a substantive portion of the visit including all aspects of the following. My rosales findings include: History is-year-old female right lower quadrant abdominal pain. Prior josr endectomy and cholecystectomy. No fever or chills. No nausea, vomiting, diarrhea or constipation. No dysuria. No vaginal bleeding or discharge. Family history of ovarian cyst. Exam is [well-appearing 32-year-old. Vital signs stable afebrile. HEENT exam normal. Lungs clear. Heart regular rhythm. Abdomen soft nondistended normal bowel sounds no peritoneal signs. Mild very medial right lower quadrant pelvic tenderness. Left side unremarkable. No McBurney's point tenderness. No distention. No hernia no mass. Moving all 4 extremities.] Medical Decision Making [32-year-old right-sided pelvic pain possibly ovarian cyst. Urinalysis negative no signs of infection. 1+ bacteria and some blood. No white or red cells. Urine test negative. Ultrasound pending. Treated with Toradol for pain.] Other additions or changes: [None] History & Record Review Discussion w/independent historian: Patient Additional record(s) reviewed:: Prior inpatient record, Prior outpatient record, Prior ED visit and Prior labs Lab Data Labs: Laboratory Results - last 24 hr 06/13/23 13:34 Urine Color Yellow Urine Clarity Clear Urine pH 6.0 Ur Specific [place] 1.020 Urine Protein 15 H Urine Glucose (UA) Normal Urine Ketones Negative Urine Occult Blood 150 H Urine Nitrite Negative Urine Bilirubin Negative Urine Urobilinogen Normal Ur Leukocyte Esterase Negative Urine RBC 0-5 SEEN Urine WBC 0 SEEN Ur Squamous Epith Cells 0-5 SEEN Urine Bacteria 1+ Urine Mucus 0 SEEN Urine Test Negative Radiography Diagnostic Testing: Clinical Impression(s) from Imaging Studies Transvaginal US 06/13/23 13:38 IMPRESSION: Suspect 2.3 cm exophytic solid mass of the right ovary. CT or MRI may be useful. No ovarian torsion. Electronically Signed: Kyle Park MD at 14:48 EST , Discharge Plan Triage Chief Complaint: Abd Pain ED Midlevel Provider: Crystal Mcfarland ED Provider: Rasheed Blanchard Dx/Rx/DC Orders Clinical Impression: Mass of right ovary, Pelvic pain Instructions: Ovarian Cysts Prescriptions: New naproxen [Naprosyn] 500 mg tablet 500 mg PO BID PRN (Reason: pain) Qty: 20 0RF Primary Care Provider: [facility] Erica Dunbar Referrals: Michelle Minor DO [Med Staff - Active Staff[facility] - Activity Restrictions/Additional Instructions: Addition to naproxen you can buy Tylenol and take 1000 mg every 6 hours for pain control. Please call the [employer] for follow-up appointment. They need to make sure that this right ovarian cyst resolves. If it does not they may get further imaging to rule out a mass. Disposition Disposition: Home, Self Care
[2023-06-13 13:48] LABS: Color, Urine Yellow (Yellow); Glucose, Dipstick Normal (Normal); Ketone-Dipstick Negative (Negative); Leukocyte Esterase-Dipstick Negative /ul (Negative); Nitrite-Dipstick Negative (Negative); Occult Blood-Urine 150 /ul (Negative); Protein-Dipstick 15 mg/dl (Negative); Urine Bilirubin Dipstick Negative (Negative); Urine Clarity Clear (Clear); Urine Urobilinogen Normal (Normal)
[2023-06-13 14:00] LABS: Bacteria 1+ /hpf (None Seen); Red Blood Cells-Urine 0-5 SEEN /hpf (0-5); Squamous Epithelial Cells - UA 0-5 SEEN /hpf (5-10)
[2023-06-13 14:01] LABS: Internal QC Validated? YES +Cl - CLEAR BKGD; Pregnancy, Urine Negative Negative; Record Kit Lot#,Urine Preg 667200
[2023-06-13] MEDS: Ketorolac 15 MG/ML Vial IV ×2 (14:15→15:13)
[2023-06-13 15:16] VITALS: BP 124/78; PULSE 76; RESP 15; O2SAT 98
== END 2023-06-13 15:27 | disposition home or self-care (01) ==
LOC: ED 15:19
PROVIDERS: Physician Assistant; Emergency Provider Emergency Medicine; Visit Provider Emergency Medicine
DX: N83.8 Other noninflammatory disorders of ovary, fallopian tube and broad ligament (principal); F17.210 Nicotine dependence, cigarettes, uncomplicated; Z90.49 Acquired absence of other specified parts of digestive tract
CPT/HCPCS: 76830; 81001; 81025; 96374; 96376; 99283; A4216

== ENCOUNTER 2023-09-12 08:18 | Emergency (ER) | payer MEDICAID, SELFPAY ==
[2023-09-12 08:18] VITALS: BP 125/73; PULSE 69; RESP 14; TEMP 36.4; O2SAT 97; BMI 25.5
[2023-09-12 08:26] VITALS: BP 125/73; PULSE 69; RESP 14; TEMP 36.4; O2SAT 97
[2023-09-12 08:46] LABS: Absolute Lymphocyte Count 1.95 X10^3/uL (0.83-4.51); Absolute Neutrophil Count 10.9 X10^3/uL (2.0-7.7); Basophil# 0.07 X10^3/uL; Basophil% 0.5 % (0-1); Eosinophil# 0.22 X10^3/uL; Eosinophils% 1.6 % (0-5); Hematocrit 41.6 % (37-47); Hemoglobin 13.6 g/dL (12.0-15.0); Lymphocyte # 1.95 X10^3/ul (0.83-4.51); Lymphocyte % 13.9 % (19-41); Mean Corp Hgb Conc 32.7 g/dL (32-36); Mean Corpuscular Hgb 29.5 pg (27.0-32.0); Mean Corpuscular Volume 90.2 fL (81-99); Mean Platelet Vol. 9.2 fl (6.2-12.0); Monocyte# 0.82 X10^3/uL; Monocyte% 5.8 % (0-10); NRBC Flagged by Analyzer 0 % (0-5); Neutrophil # 10.91 X10^3/uL (2.7-7.7); Neutrophil % 77.8 % (47-70); Platelet Count 268 K/mm3 (150-450); RBC Distribution Width CV 12.4 % (11.6-14.6); RBC Distribution Width SD 40.8 fl (35.1-43.9); Red Blood Count 4.61 M/mm3 (4.2-5.4)
[2023-09-12 08:54] LABS: Internal QC Validated? YES +Cl - CLEAR BKGD; Pregnancy, Serum, hCG Quali. NEGATIVE Negative
--- NOTE | 2023-09-12 08:56 | ED.VIS.GI ---
HPI HPI - GI History of Present Illness Chief Complaint: Abd Pain Narrative Narrative: 32-year-old female with acute onset left lower quadrant pain since 3 AM. Patient describes the pain as sharp and also describes the pain as somebody ripping my insides out. She cannot tell me if she is ever had this pain before. She states she does have urinary frequency but denies dysuria or hematuria. No history of kidney stones. No history of trauma. Patient states she has Nexplanon impaction and she does not believe she is . Last menstrual period was 1 month ago and last 2 weeks. She states she has irregular menstrual cycles. She is sexually active without protection. No fevers or chills. She has nausea without vomiting. Past surgical history of appendectomy and cholecystectomy. PFSH PFSH Medical History Abdominal pain PTSD (post-traumatic stress disorder) Home Medications escitalopram oxalate 10 mg tablet 10 mg PO DAILY 08/25/23 [History Last Taken Unknown] hydroxyzine HCl 25 mg tablet 25 mg PO BID PRN 08/25/23 [History Last Taken Unknown] ondansetron 4 mg disintegrating tablet 4 mg PO Q8H PRN PRN Nausea #10 tabs 09/12/23 [Rx Last Taken Unknown] sulfamethoxazole 800 mg-trimethoprim 160 mg tablet (Bactrim DS) 1 tab PO BID #20 tabs 09/12/23 [Rx Last Taken Unknown] Allergy/AdvReac Type Severity Reaction Status Date / Time BCG (Bacillus Allergy Severe Swelling Verified 09/12/23 08:20 [place]-Yue) vacc Seasonal Allergies: Uncoded Allergy Other Verified 09/12/23 08:20 tuberculin, purified protein Allergy Swelling Verified 09/12/23 08:20 deriva Surgical History History of appendectomy History of cholecystectomy Social History Smoking Status: Current every day smoker tobacco type: cigarettes alcohol intake: never ROS ROS ED Constitutional Constitutional ED: Denies chills, fever(s) or sweats Eyes Eyes: Denies blurry vision or change in vision ENT ENT ED: Denies ear pain or sore throat Cardiovascular Cardiovascular: Denies chest pain, palpitations or racing heartbeat Respiratory/Chest Respiratory/Chest: Denies cough, dyspnea or sputum Gastrointestinal Gastrointestinal: Reports abdominal pain and nausea; Denies constipation, diarrhea or vomiting Genitourinary Genitourinary ED: Reports urinary frequency; Denies dysuria or hematuria Musculoskeletal Musculoskeletal: Denies arthralgias, myalgias or neck pain Integumentary Denies abscess, Abrasions or rash Neurologic Neurologic: Denies headache(s), paresthesias or weakness Psychiatric Psychiatric: Denies anxiety, depression, suicidal ideation or suicidal thoughts Endocrine Endocrinology: Denies polydipsia or polyuria EXAM Physical Exam Const Vital Signs: 09/12/23 08:18 09/12/23 08:26 09/12/23 10:18 Temperature 97.5 F L 97.5 F L 97.4 F L Temperature Source Temporal Temporal Oral Pulse Rate 69 69 82 Respiratory Rate 14 14 16 Blood Pressure 125/73 H 125/73 H 124/79 H Blood Pressure Mean 90 90 94 Pulse Ox 97 97 99 Oxygen Delivery Method Room Air Room Air Room Air Positive well nourished General Appearance ED: NAD; Negative for pallor HEENT Reports moist mucous membranes normocephalic and atraumatic Eyes PERRL and EOMs intact bilaterally Neck no lymphadenopathy Resp normal respiratory effort and clear to auscultation bilaterally Cardio regular rate and regular rhythm GI Palpation: tender LLQ Back/Spine no CVA tenderness Neuro CN's II-XII intact bilaterally and moves all extremities Sensorium / Orientation: alert Motor Exam: strength 5/5 throughout Psych mental status grossly normal Skin General Skin Exam: Negative for jaundice or pallor MDM MDM MDM Narrative Medical decision making narrative: Patient presenting with right flank pain. Differential includes colitis, diverticulitis, gastritis, pancreatitis, constipation, UTI, pyelonephritis, renal calculi, ureteral calculi, bowel obstruction, malignancy, dehydration, electrolyte abnormalities, , ectopic , ovarian cyst, ovarian torsion. CBC to assess up with cell count, hemoglobin, platelets. CMP to assess liver function, renal function electrolytes, glucose. Lipase to assess for pancreatitis. Urinalysis to assess for UTI. hCG to assess for . CBC shows elevated white blood cell count of 14.0 however she is elevated in the past in this range. Hemoglobin 13.6. Platelets 268. Renal function electrolytes within normal limits. hCG negative. Urinalysis consistent with UTI with urine nitrite positive, 500 leukocyte esterase, greater than 100 white blood cells with no contamination and 2+ bacteria. CT of the abdomen pelvis does not show anything acute other than some bladder wall thickening which could be due to UTI. Patient will be treated for UTI and given extended course to cover for pyelonephritis. Urine culture will be sent. Patient on reevaluation at 11 AM is resting comfortably. After I woke her up she was amenable to discharge plan. She states she would like some Zofran for home. Impression: 1. UTI 2. Early pyelonephritis 3. Abdominal pain Lab Data Labs: Laboratory Results - last 24 hr 09/12/23 09/12/23 08:29 08:43 WBC 14.0 H RBC 4.61 Hgb 13.6 Hct 41.6 MCV 90.2 MCH 29.5 MCHC 32.7 RDW Std Deviation 40.8 RDW Coeff of Fox 12.4 Plt Count 268 MPV 9.2 Immature Gran % (Auto) 0.400 Neut % (Auto) 77.8 H Lymph % (Auto) 13.9 L [place] % (Auto) 5.8 Eos % (Auto) 1.6 Baso % (Auto) 0.5 Absolute Neuts (auto) 10.9 H Absolute Lymphs (auto) 1.95 Nucleated RBC % 0 Sodium 139 Potassium 3.7 Chloride 111 H Carbon Dioxide 24.0 Anion Gap 4 L BUN 10 Creatinine 0.59 Estim Creat Clear Calc 117.19 Est GFR (MDRD) Af Amer 152 Est GFR (MDRD) Non-Af 126 BUN/Creatinine Ratio 16.9 Glucose 94 Calcium 9.4 Total Bilirubin 0.70 AST 14 L ALT 17 Alkaline Phosphatase 100 Total Protein 7.0 Albumin 4.0 Globulin 3.0 Albumin/Globulin Ratio 1.3 Serum , Qual NEGATIVE Urine Color Yellow Urine Clarity Cloudy Urine pH 5.0 Ur Specific [place] 1.025 Urine Protein 100 H Urine Glucose (UA) Normal Urine Ketones 5 H Urine Occult Blood 250 H Urine Nitrite Positive H Urine Bilirubin 1 H Urine Urobilinogen 1 H Ur Leukocyte Esterase 500 H Urine RBC 10-25 SEEN Urine WBC >100 SEEN Ur Squamous Epith Cells 0 SEEN Urine Bacteria 2+ Urine Mucus 0 SEEN Radiography Diagnostic Testing: Clinical Impression(s) from Imaging Studies Abdomen/Pelvis CT 09/12/23 08:59 IMPRESSION: 1. Diffuse thickening of the descending and sigmoid colon likely due to underdistention. Colitis is less likely. 2. Fluid-filled small bowel loops without evidence of bowel obstruction could be due to ileus. Enteritis is possible. 3. Circumferential thickening of the bladder wall which could be due to underdistention. Cystitis cannot be excluded. 4. Status post cholecystectomy and appendectomy. Electronically Signed: Mario Parson MD at 10:42 EDT , Discharge Plan Triage Chief Complaint: Abd Pain ED Provider: Koby Brush Dx/Rx/DC Orders Instructions: ED Abdominal Pain Unkn Cause Fem, ED Cystitis Female Adult Prescriptions: New sulfamethoxazole-trimethoprim [Bactrim DS] 800-160 mg tablet 1 tab PO BID Qty: 20 0RF ondansetron 4 mg tablet,disintegrating 4 mg PO Q8H PRN PRN (Reason: Nausea) Qty: 10 0RF No Action escitalopram oxalate 10 mg tablet 10 mg PO DAILY hydroxyzine HCl 25 mg tablet 25 mg PO BID PRN Patient Comments: TAKE 1 TABLET BY MOUTH TWICE DAILY NEEDED FOR ANXIETY Primary Care Provider: [facility] Erica Dunbar Referrals: [facility] Erica Dunbar [Primary Care Provider] - Disposition Disposition: Home, Self Care
--- NOTE | 2023-09-12 08:59 | CT_ITS ---
STUDY: CT ABDOMEN AND PELVIS WITH CONTRAST REASON FOR EXAM: Female, 32 years old. Pain RADIATION DOSAGE (If Supplied By Facility): CTDIvol = ( 17.53 ) mGy, DLP = ( 597.83 ) mGycm TECHNIQUE: IV 100mL Isovue-[id number] was administered. Transaxial images were obtained from the dome of the diaphragm to the symphysis pubis. Multiplanar coronal and sagittal images were reformatted. Individualized Dose Optimization Techniques Were Used For This CT. COMPARISON: No relevant prior comparison study available FINDINGS: The visualized lung bases are unremarkable. The visualized portions of the heart are within normal limits. Hepatomegaly versus [place]''s lobe. No focal lesion is seen. There are surgical clips in the gallbladder fossa consistent with a prior cholecystectomy. Normal spleen. Normal pancreas. Normal bilateral adrenal glands. Normal right kidney. Normal left kidney. Normal visualized stomach. Nonspecific fluid-filled small bowel loops without evidence of bowel obstruction. Fecal retention in the ascending colon. Narrowing of the descending and sigmoid colon could be due to underdistention. Colitis is less likely. There are surgical clips in the region of the appendix consistent with a prior appendectomy. Normal abdominal aorta. No retroperitoneal adenopathy. Circumferential thickening of the bladder wall could be due to underdistention. Cystitis cannot be excluded. Normal abdominal wall. Normal osseous structures. CT/Abdomen/Pelvis W IV Cont ONLY IMPRESSION: 1. Diffuse thickening of the descending and sigmoid colon likely due to underdistention. Colitis is less likely. 2. Fluid-filled small bowel loops without evidence of bowel obstruction could be due to ileus. Enteritis is possible. 3. Circumferential thickening of the bladder wall which could be due to underdistention. Cystitis cannot be excluded. 4. Status post cholecystectomy and appendectomy. Electronically Signed: Mario Parson MD at 10:42 EDT ,
[2023-09-12 09:00] LABS: ALB/GLOB Ratio 1.3 RATIO (0.9-2.4); AST(SGOT) 14 U/L (15-37); Alanine Aminotransfer ALT/SGPT 17 U/L (13-56); Alkaline Phosphatase 100 U/L (45-117); Anion Gap 4 (5-15); BUN 10 mg/dL (7-18); BUN/Creat Ratio 16.9 RATIO (10-20); Calcium,Total 9.4 mg/dL (8.5-10.1); Chloride 111 mmol/L (98-107); Creatinine, Serum 0.59 mg/dL (0.55-1.02); EST Glomerular Filtration Rate 126 mL/min (>60); Est Glom Filt Rate - Afr Amer 152 mL/min (>60); Estimated Creatinine Clearance 117.19 ml/min; Glucose 94 mg/dL (74-106); Potassium 3.7 mmol/L (3.5-5.1); Sodium Level 139 mmol/L (136-145)
[2023-09-12 09:09] LABS: Mucous, Urine 0 SEEN /hpf (<or=2+); Squamous Epithelial Cells - UA 0 SEEN /hpf (5-10)
[2023-09-12] MEDS: Ondansetron 4 MG/2 ML Vial IV (09:13)
[2023-09-12] MEDS: Ketorolac 15 MG/ML Vial IV (09:14)
[2023-09-12 10:10] LABS: Color, Urine Yellow (Yellow); Glucose, Dipstick Normal (Normal); Ketone-Dipstick 5 mg/dl (Negative); Leukocyte Esterase-Dipstick 500 /ul (Negative); Nitrite-Dipstick Positive (Negative); Occult Blood-Urine 250 /ul (Negative); Protein-Dipstick 100 mg/dl (Negative); Specific Gravity, Urine 1.025 (1.002-1.030); Urine Clarity Cloudy (Clear); Urine Urobilinogen 1 mg/dl (Normal)
[2023-09-12 10:16] LABS: Urine Bilirubin Dipstick 1 mg/dL (Negative)
[2023-09-12 10:18] VITALS: BP 124/79; PULSE 82; RESP 16; TEMP 36.3; O2SAT 99
[2023-09-12 10:20] LABS: Bacteria 2+ /hpf (None Seen); Red Blood Cells-Urine 10-25 SEEN /hpf (0-5); White Blood Cells >100 SEEN /hpf (0-5)
[2023-09-12] MEDS: Smz/Tmp Ds Tablet 1 TABLET PO (11:17)
[2023-09-12 11:19] VITALS: BP 118/79; PULSE 81; RESP 16; TEMP 36.4; O2SAT 99
== END 2023-09-12 11:21 | disposition home or self-care (01) ==
PROVIDERS: Emergency Provider Student in an Organized Health Care Education/Training Program; Visit Provider Student in an Organized Health Care Education/Training Program
DX: N39.0 Urinary tract infection, site not specified (principal); N12 Tubulo-interstitial nephritis, not specified as acute or chronic; R10.32 Left lower quadrant pain; F17.210 Nicotine dependence, cigarettes, uncomplicated
CPT/HCPCS: 74177; 80053; 81001; 84703; 85025; 96374; 96375; 99283; Q9967; A4216; J2405

== ENCOUNTER 2023-10-02 10:36 | Emergency (ER) | payer MEDICAID, SELFPAY ==
[2023-10-02 10:36] VITALS: BP 130/73; PULSE 51; RESP 12; TEMP 35.7; O2SAT 100
--- NOTE | 2023-10-02 11:16 | EX.ED.DYSGE1 ---
HPI History of Present Illness Chief Complaint: Abd Pain Informant: patient Narrative Narrative: 32-year-old female presenting to the emergency room with a chief complaint of fever cough rhinorrhea and now black stool. Patient states she had a bowel movement today. It was formed and she states that the stool appeared brown. However when she wiped it looked black. She went to urgent care and was sent here. She states she has been taking [id number] medicine occasions but no Pepto-Bismol or other medications that she thinks are I think would cause black stool. She denies any epigastric pain. No bright red blood. PFSH PFS Medical History Abdominal pain PTSD (post-traumatic stress disorder) Home Medications escitalopram oxalate 10 mg tablet 10 mg PO DAILY 08/25/23 [History Last Taken Unknown] hydroxyzine HCl 25 mg tablet 25 mg PO BID PRN 08/25/23 [History Last Taken Unknown] ondansetron 4 mg disintegrating tablet 4 mg PO Q8H PRN PRN Nausea #10 tabs 09/12/23 [Rx Last Taken Unknown] sulfamethoxazole 800 mg-trimethoprim 160 mg tablet (Bactrim DS) 1 tab PO BID #20 tabs 09/12/23 [Rx Last Taken Unknown] Allergy/AdvReac Type Severity Reaction Status Date / Time BCG (Bacillus Allergy Severe Swelling Verified 10/02/23 10:37 [place]) vacc Seasonal Allergies: Uncoded Allergy Other Verified 10/02/23 10:37 tuberculin, purified protein Allergy Swelling Verified 10/02/23 10:37 deriva Surgical History History of appendectomy History of cholecystectomy Social History Smoking Status: Current every day smoker tobacco type: cigarettes alcohol intake: never ROS ROS ED Constitutional Constitutional ED: Reports chills and fever(s); Denies weight loss Eyes Eyes: Denies change in vision or diplopia ENT ENT ED: Reports rhinorrhea and other Details: Congestion ; Denies ear pain or sore throat Cardiovascular Cardiovascular: Denies chest pain, orthopnea, palpitations or racing heartbeat Respiratory/Chest Respiratory/Chest: Reports cough; Denies dyspnea or orthopnea Gastrointestinal Gastrointestinal: Denies abdominal pain, diarrhea, nausea or vomiting Genitourinary Genitourinary ED: Denies dysuria, hematuria or urinary frequency Musculoskeletal Musculoskeletal: Denies arthralgias or myalgias Integumentary Denies abscess or rash Neurologic Neurologic: Denies headache(s) or weakness Psychiatric Psychiatric: Denies anxiety, depression, suicidal ideation or suicidal thoughts Endocrine Endocrinology: Denies polydipsia, polyphagia or polyuria Allergic/Immunologic Allergic/Immunologic ED: Denies mouth swelling, tongue swelling or urticaria EXAM Physical Exam Const Vital Signs: 10/02/23 10:36 10/02/23 13:16 Temperature 96.2 F L 97.4 F L Temperature Source Temporal Pulse Rate 51 L 45 L Respiratory Rate 12 18 Blood Pressure 130/73 H 112/66 Blood Pressure Mean 92 81 Pulse Ox 100 99 Oxygen Delivery Method Room Air Positive well nourished and well developed General Appearance ED: well developed HEENT Reports normocephalic, head/scalp atraumatic and moist mucous membranes Eyes PERRL and EOMs intact bilaterally Neck no lymphadenopathy, supple and no JVD Resp normal respiratory effort and clear to auscultation bilaterally Cardio regular rate, regular rhythm and no murmurs GI normal to inspection, nondistended, normoactive bowel sounds and non-tender Palpation: soft Back/Spine no CVA tenderness and normal ROM Extremity normal to inspection General Extremety ED: Negative for edema General Extremity: Negative for edema Neuro oriented x3 and CN's II-XII intact bilaterally Sensorium / Orientation: alert Motor Exam: strength 5/5 throughout Psych mental status grossly normal Mood & Affect: Negative for depressed or tearful Skin no rashes or lesions noted and no wounds MDM MDM MDM Narrative Medical decision making narrative: COVID influenza and RSV are negative. White count 8.2 hemoglobin 12.1 platelet count 242. BUN of 11 creatinine 0.53. Normal liver enzymes. Patient clinically appears well. I think most likely she has a viral illness. The stool is brown and formed I do not believe this is going to be a significant upper GI bleed. She does not have any upper abdominal pain. She was given precautions and return instructions will treat symptomatically. History & Record Review Discussion w/independent historian: Patient Additional record(s) reviewed:: Prior labs Lab Data Attestation: I reviewed the patient's lab results. Labs: Laboratory Results - last 24 hr 10/02/23 11:35 WBC 8.2 RBC 4.10 L Hgb 12.1 Hct 37.3 MCV 91.0 MCH 29.5 MCHC 32.4 RDW Std Deviation 40.8 RDW Coeff of Fox 12.2 Plt Count 242 MPV 9.3 Immature Gran % (Auto) 0.100 Neut % (Auto) 65.4 Lymph % (Auto) 24.4 Cherry % (Auto) 8.2 Eos % (Auto) 1.3 Baso % (Auto) 0.6 Absolute Neuts (auto) 5.3 Absolute Lymphs (auto) 1.99 Nucleated RBC % 0 Sodium 139 Potassium 3.9 Chloride 112 H Carbon Dioxide 25.0 Anion Gap 2 L BUN 11 Creatinine 0.53 L Est GFR (MDRD) Af Amer 175 Est GFR (MDRD) Non-Af 144 BUN/Creatinine Ratio 20.9 H Glucose 84 Calcium 8.7 Total Bilirubin 0.20 AST 15 ALT 20 Alkaline Phosphatase 97 Total Protein 6.3 L Albumin 3.4 Globulin 2.9 Albumin/Globulin Ratio 1.2 Discharge Plan Triage Chief Complaint: Abd Pain ED Provider: Lucas Chery Dx/Rx/DC Orders Clinical Impression: Viral URI with cough Instructions: ED URI, Viral, No Abx (Adult) Prescriptions: No Action escitalopram oxalate 10 mg tablet 10 mg PO DAILY hydroxyzine HCl 25 mg tablet 25 mg PO BID PRN Patient Comments: TAKE 1 TABLET BY MOUTH TWICE DAILY NEEDED FOR ANXIETY sulfamethoxazole-trimethoprim [Bactrim DS] 800-160 mg tablet 1 tab PO BID Qty: 20 0RF ondansetron 4 mg tablet,disintegrating 4 mg PO Q8H PRN PRN (Reason: Nausea) Qty: 10 0RF Stand Alone Forms: ED Work / School Excuse Primary Care Provider: [facility] Erica Dunbar Referrals: [facility] Erica Dunbar [Primary Care Provider] - As Needed Disposition Disposition: Home, Self Care Discharge Date/Time: 10/02/23 13:17
[2023-10-02 11:42] LABS: Absolute Lymphocyte Count 1.99 X10^3/uL (0.83-4.51); Absolute Neutrophil Count 5.3 X10^3/uL (2.0-7.7); Basophil# 0.05 X10^3/uL; Basophil% 0.6 % (0-1); Eosinophil# 0.11 X10^3/uL; Eosinophils% 1.3 % (0-5); Hematocrit 37.3 % (37-47); Hemoglobin 12.1 g/dL (12.0-15.0); Lymphocyte # 1.99 X10^3/ul (0.83-4.51); Lymphocyte % 24.4 % (19-41); Mean Corp Hgb Conc 32.4 g/dL (32-36); Mean Corpuscular Hgb 29.5 pg (27.0-32.0); Mean Platelet Vol. 9.3 fl (6.2-12.0); Monocyte# 0.67 X10^3/uL; Monocyte% 8.2 % (0-10); NRBC Flagged by Analyzer 0 % (0-5); Neutrophil # 5.33 X10^3/uL (2.7-7.7); Neutrophil % 65.4 % (47-70); Platelet Count 242 K/mm3 (150-450); RBC Distribution Width CV 12.2 % (11.6-14.6); RBC Distribution Width SD 40.8 fl (35.1-43.9); White Blood Count 8.2 K/mm3 (4.4-11.0)
[2023-10-02 11:58] LABS: ALB/GLOB Ratio 1.2 RATIO (0.9-2.4); AST(SGOT) 15 U/L (15-37); Alanine Aminotransfer ALT/SGPT 20 U/L (13-56); Albumin, Serum 3.4 g/dL (3.2-5.0); Alkaline Phosphatase 97 U/L (45-117); Anion Gap 2 (5-15); BUN 11 mg/dL (7-18); BUN/Creat Ratio 20.9 RATIO (10-20); Calcium,Total 8.7 mg/dL (8.5-10.1); Chloride 112 mmol/L (98-107); Creatinine, Serum 0.53 mg/dL (0.55-1.02); EST Glomerular Filtration Rate 144 mL/min (>60); Est Glom Filt Rate - Afr Amer 175 mL/min (>60); Globulin 2.9 g/dL (2.2-4.2); Glucose 84 mg/dL (74-106); Potassium 3.9 mmol/L (3.5-5.1); Protein, Total 6.3 g/dL (6.4-8.2); Sodium Level 139 mmol/L (136-145)
[2023-10-02 13:16] VITALS: BP 112/66; PULSE 45; RESP 18; TEMP 36.3; O2SAT 99
== END 2023-10-02 13:17 | disposition home or self-care (01) ==
PROVIDERS: Emergency Provider Emergency Medicine; Visit Provider Emergency Medicine
DX: J06.9 Acute upper respiratory infection, unspecified (principal); F17.210 Nicotine dependence, cigarettes, uncomplicated
CPT/HCPCS: 80053; 85025; 87631; 99283; A4216

== ENCOUNTER → 2024-04-28 | Outpatient (CLI) | payer MEDICAID, SELFPAY ==
[2024-04-28 12:18] LABS: Bacteria 0 SEEN /hpf (None Seen); Mucous, Urine 0 SEEN /hpf (<or=2+)
[2024-04-28 12:46] LABS: Color, Urine Yellow (Yellow); Glucose, Dipstick Normal (Normal); Ketone-Dipstick Negative (Negative); Leukocyte Esterase-Dipstick 25 /ul (Negative); Nitrite-Dipstick Negative (Negative); Occult Blood-Urine 150 /ul (Negative); Protein-Dipstick Negative (Negative); Urine Bilirubin Dipstick Negative (Negative); Urine Clarity Cloudy (Clear); Urine Urobilinogen Normal (Normal)
[2024-04-28 12:58] LABS: Red Blood Cells-Urine 0-5 SEEN /hpf (0-5); Squamous Epithelial Cells - UA 25-50 SEEN /hpf (5-10); White Blood Cells 0-5 SEEN /hpf (0-5)
== END | disposition home or self-care (01) ==
LOC: LABSPEC 11:57
PROVIDERS: Referring Provider Physician Assistant Surgical; Visit Provider Physician Assistant Surgical
DX: M54.50 Low back pain, unspecified (principal)
CPT/HCPCS: 81001; 87086; 87088

== ENCOUNTER → 2024-12-14 | Outpatient (CLI) | payer MEDICAID, SELFPAY ==
--- NOTE | 2024-12-14 13:55 | RAD_ITS ---
PROCEDURE: RIBS UNIL 2V NO CXR 12/14/2024 REASON FOR EXAM: RIB INJURY Right rib pain and right shoulder pain following a fall. TECHNIQUE: RIBS UNIL 2V NO CXR COMPARISON: None FINDINGS: Findings: No acute abnormality is seen. No fracture. Other: RAD/Ribs Unil 2V No CXR IMPRESSION: Unremarkable examination. Reading Location: [id number]
== END | disposition home or self-care (01) ==
LOC: MTRAD 13:55
PROVIDERS: Referring Provider Physician Assistant; Visit Provider Physician Assistant
DX: S29.9XXA Unspecified injury of thorax, initial encounter (principal); W19.XXXA Unspecified fall, initial encounter
CPT/HCPCS: 71100